=== PATIENT | male | born 1955 | race Caucasian/White ===

== ENCOUNTER 2017-11-03 10:33 | Outpatient (CLI) | payer OTHER, MEDICARE ==
[2017-11-03 14:15] LABS: Hemoglobin 14.1 g/dL (14.0-18.0); Mean Corpuscular HGB CONC 34.3 g/dL (32.0-36.0); Mean Corpuscular Hemoglobin 30.4 pg (27.0-31.0); Mean Corpuscular Volume 88.9 fl (80.0-94.0); Mean Platelet Volume 7.4 fL (7.4-10.4); Platelet Count 128 thou/uL (130-400); Red Blood Cell (RBC) Count 4.64 mill/uL (4.70-6.10); White Blood Cell (WBC) Count 5.1 thou/uL (4.8-10.8)
[2017-11-03 14:27] LABS: INR-International Normal Ratio 1.1; PTT 29.8 SEC (22.9-36.1)
[2017-11-03 14:36] LABS: ALT (SGPT) 19 U/L (8-55); AST (SGOT) 23 U/L (5-34); Albumin 3.8 g/dL (3.4-4.8); Alkaline Phosphatase 47 U/L (40-150); Anion Gap 12 mmol/L (10-20); BUN (Urea Nitrogen) 14 mg/dL (8.4-25.7); Bilirubin, Total 1.2 mg/dL (0.2-1.2); Calc. Creatinine Clearance 0 mL/min (70-130); Calcium 8.8 mg/dL (7.8-10.44); Carbon Dioxide 27 mmol/L (23-31); Cardiac Risk 3.8 (Less than 4.5); Chloride 106 mmol/L (98-107); Cholesterol 138 mg/dl (< 200 Desired); Estimated GFR-MDRD Greater than 90; Globulin 3.4 g/dL (2.4-3.5); Glucose 142 mg/dL (80-115); HDL Cholesterol 36 mg/dL (>60 Neg Risk); LDL Cholesterol, Calculated 84 mg/dL; Potassium 3.7 mmol/L (3.5-5.1); Protein, Total 7.2 g/dL (5.8-8.1); Sodium 141 mmol/L (136-145); Triglycerides 92 mg/dL (Less than 150)
--- NOTE | 2017-11-03 16:41 | EKG ---
Test Reason : Blood Pressure : / mmHG Vent. Rate : 056 BPM Atrial Rate : 056 BPM P-R Int : 162 ms QRS Dur : 092 ms QT Int : 440 ms P-R-T Axes : 035 061 -06 degrees QTc Int : 424 ms Sinus bradycardia T wave abnormality, consider inferior ischemia Abnormal ECG When compared with ECG of 19-NOV-2007 08:56, T wave inversion now evident in Inferior leads Confirmed by DR. Vale VELAZQUEZ ([id number]) on 11/03/2017 4:41:01 PM Referred By: ADRIAN Confirmed By:DR. Vale VELAZQUEZ
== END 2017-11-03 10:34 | disposition home or self-care (01) ==
LOC: LABBT 10:33
PROVIDERS: ATTEND Internal Medicine Cardiovascular Disease
DX: Z01.818 Encounter for other preprocedural examination (principal); R06.00 Dyspnea, unspecified; R94.31 Abnormal electrocardiogram [ECG] [EKG]
CPT/HCPCS: 80053; 80061; 85027; 85610; 85730; 93005; 93010

== ENCOUNTER 2017-11-06 05:48 | Day surgery (SDC) | payer OTHER, MEDICARE ==
[2017-11-03 10:31] VITALS: BMI 39.0
[2017-11-06] MEDS ORDERED: Fentanyl 100 MCG/2 ML VIAL ONE (08:42)
[2017-11-06] MEDS ORDERED: Midazolam HCl 2 mg/2 ml Vial ONE ×2 (08:42)
[2017-11-06] MEDS ORDERED: Lidocaine 1% (PF) 30 ML VIAL ONE (09:04)
[2017-11-06] MEDS ORDERED: Heparin 10,000 UNITS/1 ML VIAL ONE (09:05)
[2017-11-06] MEDS ORDERED: Verapamil 5 MG/2 ML VIAL ONE (09:05)
[2017-11-06] MEDS ORDERED: Nitroglycerin 100MG/250ML BOT 250 ML ONE (09:05)
[2017-11-06] MEDS ORDERED: Acetaminophen/Codeine 30-300mg Tablet ONE (10:09)
--- NOTE | 2017-11-06 10:09 | HP ---
The patient is being seen in the outpatient facility. He needs to undergo cardiac catheterization. HISTORY OF PRESENT ILLNESS: This is a very pleasant 62-year-old gentleman who has complained of incr eased dyspnea for several years. He has become worse. He is unable to exercise. He is able to walk with assistance with walker. He also was unable to lie flat, he was seen in the office and was advi sed to undergo stress testing. He was unable to lie flat due to severe back injuries and problems in the past. He was unable to lie and refused to do so, unable to do a stress test on a gentleman. He also has a history of diabetes, hypertension, and hypercholesterolemia. He denied any history of to bacco abuse; however, but he is at risk for having coronary artery disease. He also has a family his tory of coronary artery disease. He is very sedentary and does not perform routine exercise. He had a work injury and has chronic back pain. He has had 2-3 previous back surgeries and has had minimal improvement. He denies any significant chest discomfort; however, he is a diabetic and may not be e xperiencing discomfort. He was advised to undergo cardiac catheterization as a definitive tool to ev aluate for underlying coronary artery disease. PAST MEDICAL HISTORY: Significant for diabetes, hypertension, hypercholesterolemia, hernia repair, c hronic low back pain, lumbar surgery. ALLERGIES: He has no known drug allergies. FAMILY HISTORY: His father had lung cancer and had diabetes and I believe he also had coronary arter y disease. SOCIAL HISTORY: He denies any tobacco abuse. He is . He has children who are alive and well . He has no history of alcohol use. He does have very sedentary lifestyle. MEDICATIONS: Include Bystolic 5 mg a day, Advil 200 mg every 6 hours p.r.n., aspirin 81 mg daily, Ja bunny 100 mg daily, metformin 1000 mg b.i.d., glipizide 10 mg tablets 1 b.i.d. before meals, losartan 100/25 one daily, and simvastatin 20 mg daily. REVIEW OF SYSTEMS: GENERAL APPEARANCE: He is obese. He has had no weight loss or weight gain. He has had no fevers. He had no new HEENT complaints, visual changes, hearing loss, or tinnitus. He rivera d no pulmonary complaints except for the shortness of breath. He has no history of asthma, emphysema or bronchitis. He does not smoke. CARDIOVASCULAR: He denied any history of palpitations, rapid he art rates, chest pain or significant past medical history and past surgical procedures. GASTROINTEST INAL: He has no nausea, vomiting or diarrhea. He had no complaints. No dysuria, polyuria or hem aturia. MUSCULOSKELETAL: He has lower extremity edema, unable to lie flat and he ambulates with a w alker or either has a scooter that assists him. NEUROLOGIC: Neurologically, no history of seizures or syncope. PHYSICAL EXAMINATION: GENERAL: Reveals a well-developed, well-nourished significantly obese gentleman. VITAL SIGNS: Blood pressure 132/68, heart rate 64 and regular, respiratory rate 12. HEENT: Shows the head to be normocephalic and atraumatic. NECK: Carotid pulses are present. There were no bruits. There is no JVD. The thyroid did not appe ar to be enlarged. He has thick neck ;however. CHEST: Clear to auscultation without rales, rhonchi or wheezing. CARDIOVASCULAR: Heart sounds are somewhat distant, but there is a regular rate and rhythm with ryan l S1 and S2. I cannot hear an S3 nor an S4. There were no significant murmurs, heaves, thrills, bru its or rubs. ABDOMEN: Shows morbid obesity with positive bowel sounds. No organomegaly or masses noted. No tend erness is noted. EXTREMITIES: Showed no clubbing or cyanosis. He has 1+ lower extremity edema from the knees down to the ankles and to the feet. Pedal pulses are present, also radial pulses are present. NEUROLOGIC: The patient appears to be intact; however, he was unable to get out of bed for further e valuation. SKIN: Warm and dry. IMPRESSION: 1. Significant dyspnea on exertion which may be due to minimal exercise; however, he has multiple ri sk factors for coronary artery disease and is unable to perform stress testing. We have discussed th maris issues with this patient due to his chronic back pain or other problems. He is unable to exercis e and even with minimal exertion, he has significant dyspnea. He has been advised to undergo cardiac catheterization as a definitive tool to rule out evidence for underlying coronary artery disease sin ce he is unable to perform stress testing. 2. Chronic back pain. This will need to be evaluated by his primary care physicians and they will micheline lugo to treat this. 3. Mild edema in lower extremities. I have stopped his amiodarone in the past and start him on Byst olic. The edema is still present, but is not effective as it was last evaluation. 4. Hypertension. This is under good control at this time. We will continue the present medications . 5. Diabetes, which appears to be adequately controlled at this time. I have explained the procedure and risks to him to include bleeding, infection, possibly a myocardial infarction, CVA, renal insuff iciency, allergic contrast reaction, and the possibility of . He understands and agrees to proc eed. We will plan for cardiac catheterization. We will ask for anesthesia assistance in order to rivera ve the patient sedated, so that we can lie the patient somewhat more flatter in order to do the proce dure. I have reviewed his laboratory data. This appears to be in order. His creatinine is 0.83, so dium is 141, potassium 3.7, blood sugar is 142, LDL level was 84 with an HDL level of 36. We will pr oceed with cardiac catheterization later this morning.
[2017-11-06] MEDS ORDERED: Iopamidol 370 76% 100 ML VIAL ONE (11:34)
--- NOTE | 2017-11-06 13:43 | DIS ---
DATE OF ADMISSION: 11/06/2017 DATE OF DISCHARGE: 11/06/2017 ADMITTING DIAGNOSES: He was seen at an outpatient facility for multiple risk factors of coronary art dario disease, which include hypertension, diabetes, hypercholesterolemia, morbid obesity, and some fam berny history of heart disease. He was unable to lie down for stress testing. He become more short of breath. He has morbid obesity and has had chronic back problems. Since he was unable to lie down f or a stress test, we advised him to undergo cardiac catheterization. This required full anesthesia i n order for the patient to be extended on the cardiac catheterization table. He was taken to cardiac track laborer where he underwent the procedure today. DISCHARGE DIAGNOSES: He was seen at an outpatient facility for multiple risk factors of coronary art dario disease, which include hypertension, diabetes, hypercholesterolemia, morbid obesity, and some fam berny history of heart disease. He was unable to lie down for stress testing. He become more short of breath. He has morbid obesity and has had chronic back problems. Since he was unable to lie down f or a stress test, we advised him to undergo cardiac catheterization. This required full anesthesia i n order for the patient to be extended on the cardiac catheterization table. He was found to have mi ld 2-vessel coronary artery disease, no flow-limiting disease was noted. OTHER DISCHARGE DIAGNOSES: He was found to have mild 2-vessel coronary artery disease, no flow-limit ing disease was noted. DISCHARGE MEDICATIONS: Same as his admission medications except we will hold the metformin for 24 ho urs and then resume this medication. His other medications include Simvastatin 20 mg a day, losartan /hydrochlorothiazide 100/25 once a day, glipizide 1 mg b.i.d., metformin 1000 mg b.i.d. and this will be held for 24 hours, Januvia 100 mg daily, aspirin 81 mg a day, Advil 200 mg p.o. q.6 hours p.r.n. as needed and Bystolic 5 mg p.o. daily. PROCEDURES IN THE HOSPITAL: Include cardiac catheterization, left ventriculogram, coronary arteriogr aphy, and full anesthesia which required intubation and anesthesiologist surgical assistant. He will follow garth p with me in about 1 month in the office. He will continue his routine followups with Dr. Castillo. HOSPITAL COURSE: This is a very pleasant 62-year-old gentleman who is morbidly obese, has chronic ba ck pain, unable to lie down and has to sleep in a recliner and was found to have lower extremity emanuel a, significant dyspnea on exertion and has a history of hypertension, diabetes, and hypercholesterole annabel. He was advised to undergo a cardiac catheterization. Since we had attempted to perform a stres s test, but he was unable to perform this. He was taken to cardiac track laborer where he underwent the p rocedure today without difficulties or complications using a right radial artery approach in full gen eral anesthesia. He was found to have a 30% stenosis in the proximal left anterior descending artery and serial lesions prior to the takeoff of the diagonal branch. He has either a very very short lef t main or two separate ostium for the left anterior descending or in the left circumflex. Left circu mflex is a large vessel with no evidence of significant stenosis or plaque formation. The right radha nary artery was found to have mild plaque formation in the proximal area, but no flow-limiting diseas e was noted. The left ventriculogram showed evidence of a normal left ventricular systolic function. Ejection fraction is estimated at 60%-65%. There were no other difficulties or complications encou ntered during the procedure. If the patient remains stable, he will be discharged to home and I will see him back in the office in the next 1-2 months.
[2017-11-06] MEDS ORDERED: Lidocaine 1% PF 5 ML VIAL ONE (19:54)
[2017-11-06] MEDS ORDERED: PROPOFOL 200 MG/20 ML VIAL ONE (19:54)
[2017-11-06] MEDS ORDERED: PHENYLEPHRINE-NS 100 MCG/ML 10 ML SYRINGE ONE (19:54)
== END 2017-11-06 12:21 | disposition home or self-care (01) ==
LOC: CCL 05:48
PROVIDERS: ATTEND Internal Medicine Cardiovascular Disease
PROC: B2111ZZ Fluoroscopy of Multiple Coronary Arteries using Low Osmolar Contrast (ICD-10-PCS; principal; 2017-11-06)
PROC: 4A023N7 Measurement of Cardiac Sampling and Pressure, Left Heart, Percutaneous Approach (ICD-10-PCS; principal; 2017-11-06)
DX: I25.10 Atherosclerotic heart disease of native coronary artery without angina pectoris (principal); E11.9 Type 2 diabetes mellitus without complications; I10 Essential (primary) hypertension; E78.00 Pure hypercholesterolemia, unspecified; G89.29 Other chronic pain; M54.5 Low back pain; E66.01 Morbid (severe) obesity due to excess calories; Z68.39 Body mass index [BMI] 39.0-39.9, adult; Z79.82 Long term (current) use of aspirin; Z79.84 Long term (current) use of oral hypoglycemic drugs; Z79.899 Other long term (current) drug therapy; Z98.890 Other specified postprocedural states
CPT/HCPCS: 36416; 93458; C1769; J1644; J2001; J2250; J2704; J3010

== ENCOUNTER 2019-12-14 08:19 | Outpatient (CLI) | payer MEDICARE, OTHER ==
--- NOTE | 2019-12-14 09:12 | ULT ---
ABDOMINAL ULTRASOUND COMPLETE: HISTORY: Right upper quadrant pain. COMPARISON: 11/13/2016 gallbladder ultrasound. FINDINGS: There is at least 1 large gallstone within the gallbladder without gallbladder wall thickening or per icholecystic fluid. Liver echogenicity appears within normal limits. Visualized pancreas, IVC, aort a, and spleen are unremarkable. No renal hydronephrosis. No abscess or abnormal fluid collection. Common bile duct 0.9 cm. IMPRESSION: A 0.9 cm common bile duct. Cholelithiasis with at least 1 large gallstone. POS: AH
== END 2019-12-14 08:20 | disposition home or self-care (01) ==
LOC: BICULT 08:19
PROVIDERS: ATTEND Internal Medicine
DX: N17.9 Acute kidney failure, unspecified (principal); R10.9 Unspecified abdominal pain; R11.0 Nausea; K80.20 Calculus of gallbladder without cholecystitis without obstruction
CPT/HCPCS: 36415; 80053; 93975

== ENCOUNTER 2021-04-22 14:39 | Inpatient (IN) | payer MEDICARE, OTHER ==
[2021-04-22 17:21] LABS: #Eosinphils 0.6 thou/uL (0.0-0.7); #Lymphocytes 1.8 thou/uL (1.20-3.40); #Monocytes 0.4 thou/uL (0.11-0.59); #Neutrophils 2.9 thou/uL (1.40-6.50); %Basophils 0.4 % (0.0-1.0); %Lymphocytes 31.8 % (21.0-51.0); %Monocytes 6.4 % (0.0-10.0); %Neutrophils 51.3 % (42.0-75.0); Hemoglobin 12.6 g/dL (14.0-18.0); Mean Corpuscular HGB CONC 34.6 g/dL (32.0-36.0); Mean Corpuscular Hemoglobin 31.2 pg (27.0-31.0); Mean Corpuscular Volume 90.2 fL (78.0-98.0); Mean Platelet Volume 6.8 fL (7.4-10.4); Platelet Count 125 thou/uL (130-400); RBC Distribution Width 12.7 % (11.5-14.5); Red Blood Cell (RBC) Count 4.04 mill/uL (4.70-6.10); White Blood Cell (WBC) Count 5.6 thou/uL (4.8-10.8)
[2021-04-22 17:55] LABS: ALT (SGPT) 20 U/L (8-55); AST (SGOT) 30 U/L (5-34); Albumin 3.2 g/dL (3.4-4.8); Alkaline Phosphatase 41 U/L (40-110); Anion Gap 11 mmol/L (10-20); BUN (Urea Nitrogen) 17 mg/dL (8.4-25.7); Bilirubin, Total 1.6 mg/dL (0.2-1.2); Calc. Creatinine Clearance 0 mL/min (70-130); Calcium 8.8 mg/dL (7.8-10.44); Carbon Dioxide 28 mmol/L (23-31); Chloride 104 mmol/L (98-107); Globulin 3.7 g/dL (2.4-3.5); Glucose 143 mg/dL (80-115); Protein, Total 6.9 g/dL (5.8-8.1); Sodium 139 mmol/L (136-145)
[2021-04-22] MEDS ORDERED: cefTRIAXone\\ROCEPHIN 2 GM VIAL ONE (18:48)
[2021-04-22] MEDS ORDERED: HYDROcodone/Acetaminophen 7.5/325 mg Tablet PO PRN (19:52)
[2021-04-22] MEDS ORDERED: Bisacodyl 5 MG TAB PO PRN (19:52)
[2021-04-22] MEDS ORDERED: HYDROcodone/Acetaminophen 5/325 mg Tablet PO PRN (19:52)
[2021-04-22] MEDS ORDERED: Ondansetron PF 4 MG/2 ML Vial IVP PRN (19:52)
[2021-04-22] MEDS ORDERED: Senokot S 8.6-50 MG TAB PO PRN (19:52)
[2021-04-22] MEDS ORDERED: Acetaminophen 325 MG TAB PO PRN (19:52)
[2021-04-22] MEDS ORDERED: hydrALAZINE 20 MG/ML VIAL SLOW IVP PRN (19:57)
[2021-04-22 20:21] LABS: Mononucleosis NEGATIVE (NEGATIVE)
[2021-04-22 20:22] LABS: MONO NEGATIVE CONTROL ZONE White (Negative) (White); MONO POSITIVE CONTROL Pink Line (Positive) (PINK/RED)
[2021-04-22] MEDS ORDERED: Dextrose 50% Abboject 50 ML SYRINGE SLOW IVP PRN (20:57)
[2021-04-22] MEDS ORDERED: Dextrose 5% in Water 1,000 ML IV PRN (20:57)
[2021-04-22] MEDS ORDERED: HumaLOG 300 UNITS/3 ML VIAL SC PRN ×2 (20:57)
[2021-04-22] MEDS ORDERED: Enoxaparin Sodium 40 MG/0.4 ML SYRINGE SC SCH (21:00)
[2021-04-22 21:01] LABS: Hemoglobin A1c 6.9 % (4.0-6.0)
[2021-04-22 21:24] LABS: Bilirubin Negative (Negative); Blood, Urine Negative (Negative); Clarity Clear (Clear); Glucose, Urine (Dipstick) Normal (Negative); Ketone, Urine Negative (Negative); Leukocyte Negative Leu/uL (Negative); Nitrite Negative (Negative); Protein, Urine (Dipstick) 10 mg/dL (Neg-Trace); Specific Gravity, Urine 1.027 (1.002-1.036)
[2021-04-22 22:17] LABS: SARS-CoV-2 NAA Rapid Test Not Detected (NotDetected)
[2021-04-22] MEDS: Sodium Chloride 0.9% 1,000 ML IV SCH (23:23)
[2021-04-22] MEDS: Famotidine/PF 20 mg/2ml Vial SLOW IVP SCH (23:24)
[2021-04-22 23:57] VITALS: BMI 44.1
[2021-04-23] MEDS: Aspirin 81 mg Enteric Coated Tablet PO SCH (07:39)
[2021-04-23] MEDS: Losartan/Hydrochlorothiazide 100 mg/25 mg Tablet PO SCH (07:39)
[2021-04-23] MEDS: Enoxaparin Sodium 40 MG/0.4 ML SYRINGE SC SCH (07:40)
[2021-04-23] MEDS: metFORMIN 500 MG TAB PO SCH ×2 (07:40→19:56)
[2021-04-23] MEDS: Famotidine/PF 20 mg/2ml Vial SLOW IVP SCH ×2 (07:40→19:57)
[2021-04-23] MEDS: Nebivolol HCl 5 MG TAB PO SCH (07:40)
[2021-04-23 07:41] LABS: ALT (SGPT) 20 U/L (8-55); AST (SGOT) 30 U/L (5-34); Alkaline Phosphatase 38 U/L (40-110); Anion Gap 16 mmol/L (10-20); BUN (Urea Nitrogen) 16 mg/dL (8.4-25.7); Bilirubin, Total 1.1 mg/dL (0.2-1.2); Calc. Creatinine Clearance 177 mL/min (70-130); Calcium 8.3 mg/dL (7.8-10.44); Carbon Dioxide 21 mmol/L (23-31); Chloride 107 mmol/L (98-107); Globulin 3.2 g/dL (2.4-3.5); Glucose 135 mg/dL (80-115); Potassium 3.9 mmol/L (3.5-5.1); Protein, Total 6.2 g/dL (5.8-8.1); Sodium 140 mmol/L (136-145)
[2021-04-23 07:56] LABS: #Eosinphils 0.6 thou/uL (0.0-0.7); #Lymphocytes 2.1 thou/uL (1.20-3.40); #Monocytes 0.4 thou/uL (0.11-0.59); #Neutrophils 2.9 thou/uL (1.40-6.50); %Basophils 0.3 % (0.0-1.0); %Eosinophils 9.3 % (0.0-10.0); %Lymphocytes 34.2 % (21.0-51.0); %Monocytes 7.2 % (0.0-10.0); Hemoglobin 11.6 g/dL (14.0-18.0); Mean Corpuscular HGB CONC 34.8 g/dL (32.0-36.0); Mean Corpuscular Hemoglobin 31.1 pg (27.0-31.0); Mean Corpuscular Volume 89.3 fL (78.0-98.0); Mean Platelet Volume 7.9 fL (7.4-10.4); Platelet Count 98 thou/uL (130-400); RBC Distribution Width 12.6 % (11.5-14.5); Red Blood Cell (RBC) Count 3.74 mill/uL (4.70-6.10)
[2021-04-23] MEDS: Sodium Chloride 0.9% 1,000 ML IV SCH (16:10)
[2021-04-23] MEDS ORDERED: cefTRIAXone\\ROCEPHIN 2 GM in Sodium Chloride 0.9% 100 ML IVPB SCH (18:00)
[2021-04-23] MEDS ORDERED: Atorvastatin Calcium 10 MG TAB PO SCH (21:00)
[2021-04-24 04:20] VITALS: TEMP 97.7
[2021-04-24 08:43] VITALS: BP 123/63
[2021-04-24] MEDS: Nebivolol HCl 5 MG TAB PO SCH (08:54)
[2021-04-24] MEDS: Aspirin 81 mg Enteric Coated Tablet PO SCH (08:54)
[2021-04-24] MEDS: metFORMIN 500 MG TAB PO SCH (08:54)
[2021-04-24] MEDS: Losartan/Hydrochlorothiazide 100 mg/25 mg Tablet PO SCH (08:54)
[2021-04-24] MEDS: Enoxaparin Sodium 40 MG/0.4 ML SYRINGE SC SCH (08:55)
[2021-04-24] MEDS: Famotidine/PF 20 mg/2ml Vial SLOW IVP SCH (08:55)
== END 2021-04-24 10:37 | disposition home or self-care (01) | DRG 690 ==
LOC: ERS 14:39 → T4-B 19:43
PROVIDERS: ADMIT Internal Medicine; ATTEND Internal Medicine
DX: N12 Tubulo-interstitial nephritis, not specified as acute or chronic (principal); R78.81 Bacteremia; Z68.41 Body mass index [BMI] 40.0-44.9, adult; K76.6 Portal hypertension; B96.20 Unspecified Escherichia coli [E. coli] as the cause of diseases classified elsewhere; E11.9 Type 2 diabetes mellitus without complications; I10 Essential (primary) hypertension; E78.00 Pure hypercholesterolemia, unspecified; M19.90 Unspecified osteoarthritis, unspecified site; H91.90 Unspecified hearing loss, unspecified ear; E66.9 Obesity, unspecified; E78.5 Hyperlipidemia, unspecified; K13.79 Other lesions of oral mucosa; I08.1 Rheumatic disorders of both mitral and tricuspid valves; Z96.659 Presence of unspecified artificial knee joint; Z79.899 Other long term (current) drug therapy; Z79.82 Long term (current) use of aspirin; Z79.84 Long term (current) use of oral hypoglycemic drugs; Z98.890 Other specified postprocedural states
CPT/HCPCS: 36415; 36416; 74176; 80053; 81003; 83036; 85025; 86308; 87040; 87081; 87086; 87430; 93306; 96365; J0696; J1650; J2405; J7050; S0028; U0002

== ENCOUNTER 2021-07-12 11:37 | Outpatient (CLI) | payer MEDICARE, OTHER ==
[2021-07-12 13:57] LABS: Bilirubin Neg (Negative); Blood, Urine 10 (Negative); Clarity Clear (Clear); Glucose, Urine (Dipstick) Normal (Negative); Ketone, Urine Negative (Negative); Leukocyte Negative (Negative); Nitrite Negative (Negative); Protein, Urine (Dipstick) 15 mg/dl (Neg-Trace)
[2021-07-12 14:07] LABS: Squamous Epithelial 0-3 HPF (0-3); WBC/HPF 0-3 HPF (0-3)
[2021-07-12 14:08] LABS: Bacteria/HPF None Seen HPF (None Seen)
[2021-07-13 16:41] LABS: SARS-CoV-2 PCR by NAA DETECTED (NotDetected)
== END 2021-07-12 11:38 | disposition home or self-care (01) ==
LOC: LABBT 11:37
PROVIDERS: ATTEND Urology
DX: Z01.818 Encounter for other preprocedural examination (principal); U07.1 COVID-19; N40.1 Benign prostatic hyperplasia with lower urinary tract symptoms; E11.9 Type 2 diabetes mellitus without complications; I10 Essential (primary) hypertension; D69.6 Thrombocytopenia, unspecified; I25.10 Atherosclerotic heart disease of native coronary artery without angina pectoris; Z87.440 Personal history of urinary (tract) infections; N20.0 Calculus of kidney
CPT/HCPCS: 81001; 87086; 93005; U0003; U0005; 93010

== ENCOUNTER 2022-02-14 10:07 | Outpatient (CLI) | payer MEDICARE, OTHER ==
[2022-02-14 12:40] LABS: Hemoglobin 13.2 g/dL (13.5-17.5); Mean Corpuscular HGB CONC 34.8 g/dL (32.0-36.0); Mean Corpuscular Hemoglobin 29.7 pg (27.0-33.0); Mean Corpuscular Volume 85.4 fl (81.2-95.1); Mean Platelet Volume 9.6 fl (7.4-10.4); Platelet Count 123 10x3/uL (150-450); RBC Distribution Width 13.4 % (11.5-14.5); Red Blood Cell (RBC) Count 4.44 10x6/uL (4.32-5.72); White Blood Cell (WBC) Count 4.7 10x3/uL (3.5-10.5)
[2022-02-14 12:48] LABS: Bilirubin Neg (Negative); Blood, Urine 10 (Negative); Clarity Slightly Cloudy (Clear); Glucose, Urine (Dipstick) Normal (Negative); Ketone, Urine Negative (Negative); Leukocyte 100 (Negative); Nitrite Negative (Negative); Protein, Urine (Dipstick) 15 mg/dl (Neg-Trace); Specific Gravity, Urine 1.025 (1.002-1.036); Urobilinogen Normal mg/dL (Less than 2)
[2022-02-14 12:51] LABS: PTT 25.1 sec (22.0-33.0); Prothrombin Time 10.5 sec (9.5-12.1)
[2022-02-14 12:59] LABS: Anion Gap 12 mmol/L (10-20); BUN (Urea Nitrogen) 12 mg/dL (8.4-25.7); Calc. Creatinine Clearance 0 mL/min (70-130); Calcium 9.5 mg/dL (7.8-10.44); Carbon Dioxide 26 mmol/L (23-31); Chloride 104 mmol/L (98-107); Estimated GFR 96; Glucose 178 mg/dL (80-115); Sodium 138 mmol/L (136-145)
[2022-02-14 13:04] LABS: Bacteria/HPF 4+ HPF (None Seen); RBC/HPF 0-3 HPF (0-3); Squamous Epithelial 0-3 HPF (0-3)
== END 2022-02-14 10:08 | disposition home or self-care (01) ==
LOC: LABBT 10:07
PROVIDERS: ATTEND Urology
DX: Z01.818 Encounter for other preprocedural examination (principal); E11.9 Type 2 diabetes mellitus without complications; N40.1 Benign prostatic hyperplasia with lower urinary tract symptoms; Z20.822 Contact with and (suspected) exposure to COVID-19
CPT/HCPCS: 80048; 81001; 85027; 85610; 85730; 87077; 87086; 87186; 87811; 93005; 93010

== ENCOUNTER 2022-02-19 05:50 | Day surgery (SDC) | payer MEDICARE, OTHER ==
[2022-02-18 12:02] VITALS: BMI 41.4
[2022-02-19] MEDS ORDERED: fentaNYL Citrate/PF 100 MCG/2 ML SYRINGE ONE (07:14)
[2022-02-19] MEDS ORDERED: Famotidine/PF 20 mg/2ml Vial ONE (07:14)
[2022-02-19] MEDS ORDERED: Midazolam HCl 2 mg/2 ml Vial ONE (07:14)
[2022-02-19] MEDS ORDERED: Levofloxacin 500 mg/D5W 100 ml Premix Bag ONE (07:28)
[2022-02-19] MEDS ORDERED: Lidocaine 1% PF 5 ML VIAL ONE (07:37)
[2022-02-19] MEDS ORDERED: PROPOFOL 200 MG/20 ML VIAL ONE (07:37)
== END 2022-02-19 09:46 | disposition home or self-care (01) ==
LOC: SDC 05:50
PROVIDERS: ATTEND Urology
PROC: 0T7D8ZZ Dilation of Urethra, Via Natural or Artificial Opening Endoscopic (ICD-10-PCS; principal; 2022-02-19)
DX: N35.911 Unspecified urethral stricture, male, meatal (principal); N40.0 Benign prostatic hyperplasia without lower urinary tract symptoms; E11.9 Type 2 diabetes mellitus without complications; G89.29 Other chronic pain; M54.9 Dorsalgia, unspecified; I10 Essential (primary) hypertension; E66.01 Morbid (severe) obesity due to excess calories; Z68.41 Body mass index [BMI] 40.0-44.9, adult; Z87.440 Personal history of urinary (tract) infections; Z79.82 Long term (current) use of aspirin; Z79.84 Long term (current) use of oral hypoglycemic drugs; Z79.899 Other long term (current) drug therapy
CPT/HCPCS: 74018; J1956; J2250; J2704; S0028

== ENCOUNTER 2023-02-02 12:56 | Outpatient (CLI) | payer MEDICARE, OTHER ==
[2023-02-02 14:32] LABS: #Eosinphils 0.3 10x3/uL (0.0-0.5); #Monocytes 0.3 10x3/uL (0.0-1.1); #Neutrophils 2.8 10x3/uL (1.5-8.4); %Basophils 0.4 % (0.0-2.0); %Lymphocytes 26.8 % (18.0-47.0); %Monocytes 5.4 % (0.0-10.0); Hemoglobin 12.2 g/dL (13.5-17.5); Mean Corpuscular HGB CONC 33.2 g/dL (32.0-36.0); Mean Corpuscular Hemoglobin 29.2 pg (27.0-33.0); Mean Platelet Volume 9.9 fl (7.4-10.4); Platelet Count 112 10x3/uL (150-450); RBC Distribution Width 13.5 % (11.5-14.5); Red Blood Cell (RBC) Count 4.18 10x6/uL (4.32-5.72); White Blood Cell (WBC) Count 4.6 10x3/uL (3.5-10.5)
[2023-02-02 14:38] LABS: INR-International Normal Ratio 1.1; Prothrombin Time 11.4 sec (9.5-12.1)
[2023-02-02 14:42] LABS: Anion Gap 14 mmol/L (10-20); BUN (Urea Nitrogen) 19 mg/dL (8.4-25.7); Calc. Creatinine Clearance 0 mL/min (70-130); Calcium 9.3 mg/dL (7.8-10.44); Carbon Dioxide 28 mmol/L (23-31); Chloride 105 mmol/L (98-107); Estimated GFR 95; Glucose 94 mg/dL (80-115); Potassium 3.9 mmol/L (3.5-5.1); Sodium 143 mmol/L (136-145)
== END 2023-02-02 12:57 | disposition home or self-care (01) ==
LOC: LABBT 12:56
PROVIDERS: ATTEND Orthopaedic Surgery
DX: Z01.818 Encounter for other preprocedural examination (principal); M16.11 Unilateral primary osteoarthritis, right hip
CPT/HCPCS: 80048; 85025; 85610; 87081; 93005; 93010

== ENCOUNTER 2023-02-17 06:45 | Inpatient (IN) | payer MEDICARE, OTHER ==
[2023-02-13 11:48] VITALS: BMI 38.3
[2023-02-17] MEDS ORDERED: Tranexamic Acid 1,000 MG/10 ML VIAL ONE ×2 (07:48→12:16)
[2023-02-17] MEDS ORDERED: Sodium Chloride 0.9% 100 ML ONE ×2 (07:48→09:47)
[2023-02-17] MEDS ORDERED: Tranexamic Acid 1,000 MG in Sodium Chloride 0.9% 100 ML IVPB SCH (08:15)
[2023-02-17] MEDS ORDERED: CEFAZOLIN 2 GM in Sodium Chloride 0.9% 100 ML IVPB SCH (08:15)
[2023-02-17] MEDS ORDERED: VANCOMYCIN 2 GRAM/500 ML BAG 2 GM in Premix Bag 1 BAG IVPB SCH (08:30)
[2023-02-17] MEDS ORDERED: EPINEPHrine 1 MG/ML AMP ONE ×2 (08:49→10:42)
[2023-02-17] MEDS ORDERED: Midazolam HCl 2 mg/2 ml Vial ONE (08:49)
[2023-02-17] MEDS ORDERED: Bupivacaine PF 0.5% 30 ML VIAL ONE (08:49)
[2023-02-17] MEDS ORDERED: fentaNYL 50 mcg/mL 1 mL Vial ONE ×2 (08:49→09:07)
[2023-02-17] MEDS ORDERED: HYDROcodone/Acetaminophen 10/325 mg Tablet PO PRN (09:29)
[2023-02-17] MEDS ORDERED: fentaNYL 50 mcg/mL 1 mL Vial SLOW IVP PRN ×2 (09:29)
[2023-02-17] MEDS ORDERED: Zolpidem Tartrate 5 MG TAB PO PRN (09:29)
[2023-02-17] MEDS ORDERED: diphenhydrAMINE 25 MG CAP PO PRN (09:29)
[2023-02-17] MEDS ORDERED: Promethazine HCl 25 MG/ML VIAL IM PRN (09:29)
[2023-02-17] MEDS ORDERED: Ondansetron PF 4 MG/2 ML Vial IVP PRN (09:29)
[2023-02-17] MEDS ORDERED: Acetaminophen 325 MG TAB PO PRN (09:29)
[2023-02-17] MEDS ORDERED: Propofol 500 MG/50 ML VIAL ONE (09:31)
[2023-02-17] MEDS ORDERED: fentaNYL PF 100 MCG/2 ML SYRINGE ONE ×2 (09:31→09:49)
[2023-02-17] MEDS ORDERED: CEFAZOLIN 2 GM VIAL ONE (09:47)
[2023-02-17] MEDS ORDERED: Rocuronium Bromide 10 MG/ML (10ML VIAL) ONE (09:55)
[2023-02-17] MEDS ORDERED: PROPOFOL 200 MG/20 ML VIAL ONE (09:55)
[2023-02-17] MEDS ORDERED: Lidocaine 1% PF 5 ML VIAL ONE (09:55)
[2023-02-17] MEDS ORDERED: Ondansetron PF 4 MG/2 ML Vial ONE (09:55)
[2023-02-17] MEDS ORDERED: Glycopyrrolate 0.2 MG/ML 5 ML SYRINGE ONE (09:55)
[2023-02-17] MEDS ORDERED: NEOSTIGMINE 3 MG/3 ML SYR 3 MG/3 ML SYRINGE ONE (09:55)
[2023-02-17] MEDS ORDERED: Dexamethasone 20 MG/5 ML VIAL ONE (09:55)
[2023-02-17] MEDS ORDERED: Bupivacaine 0.25% HCL 30 ML VIAL ONE (10:42)
[2023-02-17] MEDS: Sodium Chloride 0.9% 1,000 ML IV SCH ×2 (12:28→21:18)
[2023-02-17] MEDS: CEFAZOLIN 2 GM in Sodium Chloride 0.9% 100 ML IVPB SCH (17:08)
[2023-02-17] MEDS: metFORMIN 500 MG TAB PO SCH (17:09)
[2023-02-17] MEDS: Senokot S 8.6-50 MG TAB PO SCH (21:20)
[2023-02-17] MEDS: Atorvastatin Calcium 10 MG TAB PO SCH (21:21)
[2023-02-17] MEDS: Carvedilol 6.25 MG TAB PO SCH (21:21)
[2023-02-17] MEDS: Ferrous Gluconate 324 MG TAB PO SCH (21:21)
[2023-02-17] MEDS: Aspirin 81 mg Enteric Coated Tablet PO SCH (21:22)
[2023-02-18] MEDS: CEFAZOLIN 2 GM in Sodium Chloride 0.9% 100 ML IVPB SCH (02:48)
[2023-02-18] MEDS: Sodium Chloride 0.9% 1,000 ML IV SCH ×2 (05:38→13:03)
[2023-02-18 05:49] LABS: Hemoglobin 10.1 g/dL (14.0-18.0); Mean Platelet Volume 9.8 fL (7.4-10.4); RBC Distribution Width 13.2 % (11.5-14.5)
[2023-02-18 05:50] LABS: Hematocrit 29.8 % (42.0-52.0); Mean Corpuscular HGB CONC 33.9 g/dL (32.0-36.0); Mean Corpuscular Hemoglobin 30.3 pg (27.0-31.0); Mean Corpuscular Volume 89.5 fl (78.0-98.0); Platelet Count 107 10x3/uL (130-400); Red Blood Cell (RBC) Count 3.33 mill/uL (4.70-6.10); White Blood Cell (WBC) Count 9.8 10x3/uL (4.8-10.8)
[2023-02-18] MEDS: Ferrous Gluconate 324 MG TAB PO SCH ×2 (08:25→20:03)
[2023-02-18] MEDS: Hydrochlorothiazide 25 MG TAB PO SCH (08:25)
[2023-02-18] MEDS: Cyanocobalamin (Vitamin B-12) 1,000 MCG TAB PO SCH (08:25)
[2023-02-18] MEDS: Aspirin 81 mg Enteric Coated Tablet PO SCH ×2 (08:25→20:03)
[2023-02-18] MEDS: Losartan 25 MG TAB PO SCH (08:26)
[2023-02-18] MEDS: Tamsulosin HCl 0.4 MG CAP PO SCH (08:26)
[2023-02-18] MEDS: Carvedilol 6.25 MG TAB PO SCH ×2 (08:26→20:03)
[2023-02-18] MEDS: metFORMIN 500 MG TAB PO SCH ×2 (08:26→16:22)
[2023-02-18] MEDS: Multivitamin W/ Minerals 1 TAB PO SCH (08:27)
[2023-02-18] MEDS: Senokot S 8.6-50 MG TAB PO SCH ×2 (08:27→20:03)
[2023-02-18] MEDS: Dutasteride 0.5 MG CAP PO SCH (08:36)
[2023-02-18] MEDS ORDERED: Aspirin 81 mg Enteric Coated Tablet PO SCH (09:00)
[2023-02-18] MEDS: HYDROcodone/Acetaminophen 10/325 mg Tablet PO PRN (20:02)
[2023-02-18] MEDS: Atorvastatin Calcium 10 MG TAB PO SCH (20:03)
[2023-02-19] MEDS: Sodium Chloride 0.9% 1,000 ML IV SCH ×2 (01:12→07:20)
[2023-02-19 05:56] LABS: Platelet Count 97 10x3/uL (130-400); White Blood Cell (WBC) Count 7.6 10x3/uL (4.8-10.8)
[2023-02-19 05:58] LABS: Hematocrit 29.6 % (42.0-52.0); Hemoglobin 10.2 g/dL (14.0-18.0); Mean Corpuscular HGB CONC 34.5 g/dL (32.0-36.0); Mean Corpuscular Hemoglobin 30.8 pg (27.0-31.0); Mean Corpuscular Volume 89.4 fl (78.0-98.0); Mean Platelet Volume 10.3 fL (7.4-10.4); RBC Distribution Width 13.8 % (11.5-14.5); Red Blood Cell (RBC) Count 3.31 mill/uL (4.70-6.10)
[2023-02-19] MEDS: Multivitamin W/ Minerals 1 TAB PO SCH (09:06)
[2023-02-19] MEDS: Losartan 25 MG TAB PO SCH (09:06)
[2023-02-19] MEDS: Dutasteride 0.5 MG CAP PO SCH (09:06)
[2023-02-19] MEDS: Aspirin 81 mg Enteric Coated Tablet PO SCH (09:07)
[2023-02-19] MEDS: Hydrochlorothiazide 25 MG TAB PO SCH (09:07)
[2023-02-19] MEDS: Tamsulosin HCl 0.4 MG CAP PO SCH (09:07)
[2023-02-19] MEDS: metFORMIN 500 MG TAB PO SCH (09:07)
[2023-02-19] MEDS: Ferrous Gluconate 324 MG TAB PO SCH (09:07)
[2023-02-19] MEDS: Senokot S 8.6-50 MG TAB PO SCH (09:07)
[2023-02-19] MEDS: Cyanocobalamin (Vitamin B-12) 1,000 MCG TAB PO SCH (09:07)
[2023-02-19 12:30] VITALS: TEMP 97.6
[2023-02-19] MEDS: Carvedilol 6.25 MG TAB PO SCH (12:45)
[2023-02-19 12:46] VITALS: BP 179/80
[2023-02-19] MEDS: HYDROcodone/Acetaminophen 10/325 mg Tablet PO PRN (14:01)
== END 2023-02-19 15:09 | disposition home or self-care (01) | DRG 470 ==
LOC: SDC 06:45 → SURG B 12:21
PROVIDERS: ADMIT Orthopaedic Surgery; ATTEND Orthopaedic Surgery
PROC: 0SR90J9 Replacement of Right Hip Joint with Synthetic Substitute, Cemented, Open Approach (ICD-10-PCS; principal; 2023-02-17)
DX: M16.11 Unilateral primary osteoarthritis, right hip (principal); E11.9 Type 2 diabetes mellitus without complications; I10 Essential (primary) hypertension; E78.5 Hyperlipidemia, unspecified; G89.29 Other chronic pain; N40.0 Benign prostatic hyperplasia without lower urinary tract symptoms; Z98.890 Other specified postprocedural states
CPT/HCPCS: 36415; 85027; C1776; J0171; J1100; J2250; J2405; J2704; J3010; J3370; J3490; S0020

== ENCOUNTER 2023-06-18 10:29 | Outpatient (CLI) | payer MEDICARE, OTHER | END 2023-06-18 10:30 | disposition home or self-care (01) | LOC: BICULT 10:29 | PROVIDERS: ATTEND Physician Assistant Medical | DX: Z12.5 Encounter for screening for malignant neoplasm of prostate (principal); R94.5 Abnormal results of liver function studies; N40.1 Benign prostatic hyperplasia with lower urinary tract symptoms; E11.9 Type 2 diabetes mellitus without complications; N35.916 Unspecified urethral stricture, male, overlapping sites; Z87.440 Personal history of urinary (tract) infections | CPT/HCPCS: 76705; 76770 ==

== ENCOUNTER 2023-12-30 09:08 | Outpatient (CLI) | payer MEDICARE, OTHER | END 2023-12-30 09:09 | disposition home or self-care (01) | LOC: BICULT 09:08 | PROVIDERS: ATTEND Physician Assistant Medical | DX: R79.89 Other specified abnormal findings of blood chemistry (principal); K80.20 Calculus of gallbladder without cholecystitis without obstruction; R16.1 Splenomegaly, not elsewhere classified; R93.2 Abnormal findings on diagnostic imaging of liver and biliary tract | CPT/HCPCS: 76705 ==

== ENCOUNTER 2024-06-07 10:43 | Outpatient (CLI) | payer MEDICARE, OTHER | END 2024-06-07 10:44 | disposition home or self-care (01) | LOC: BICULT 10:43 | PROVIDERS: ATTEND Physician Assistant Medical | DX: R94.5 Abnormal results of liver function studies (principal); K74.60 Unspecified cirrhosis of liver | CPT/HCPCS: 76705 ==

== ENCOUNTER 2024-07-11 15:40 | Outpatient (CLI) | payer MEDICARE, OTHER | END 2024-07-11 15:41 | disposition home or self-care (01) | LOC: BICRAD 15:40 | PROVIDERS: ATTEND Internal Medicine | DX: J40 Bronchitis, not specified as acute or chronic (principal); I51.7 Cardiomegaly; R05.1 Acute cough | CPT/HCPCS: 0241U; 71046 ==

== ENCOUNTER 2024-07-21 09:29 | Outpatient (CLI) | payer MEDICARE, OTHER | END 2024-07-21 09:30 | disposition home or self-care (01) | LOC: BICULT 09:29 | PROVIDERS: ATTEND Urology | DX: Z12.5 Encounter for screening for malignant neoplasm of prostate (principal); N40.1 Benign prostatic hyperplasia with lower urinary tract symptoms; N20.0 Calculus of kidney; N35.916 Unspecified urethral stricture, male, overlapping sites; D69.6 Thrombocytopenia, unspecified; Z87.440 Personal history of urinary (tract) infections | CPT/HCPCS: 36415; 74018; 76770; 80048; 81001; 87086; G0103 ==

== ENCOUNTER 2025-06-14 08:47 | Outpatient (CLI) | payer MEDICARE, OTHER | END 2025-06-14 08:48 | disposition home or self-care (01) | LOC: ULT 08:47 | PROVIDERS: ATTEND Internal Medicine Gastroenterology | DX: K80.20 Calculus of gallbladder without cholecystitis without obstruction (principal); K74.60 Unspecified cirrhosis of liver; R16.1 Splenomegaly, not elsewhere classified | CPT/HCPCS: 76705 ==